=== PATIENT | female | born 1955 | race Caucasian/White ===

== ENCOUNTER → 2018-03-07 | Outpatient (CLI) | payer MEDICARE, OTHER ==
[~2018-03-07] MED LIST: IBUP-232 PO; MECL-62 PO; MEDR4PAK PO; MIRT1TAB PO; PRAV80TA PO
--- NOTE | 2018-03-07 11:00 | RADRPT ---
EXAM DATE/TIME: 03/07/2018 10:46 [facility] COMPARISON: No previous studies available for comparison. INDICATIONS : Right hand pain. No prior trauma. MEDICAL HISTORY : Arthritis. Asthma. SURGICAL HISTORY : None. ENCOUNTER: Initial ACUITY: 3 days PAIN SCORE: 5/10 LOCATION: Right hand. FINDINGS: Three view examination of the right hand demonstrates no soft tissue swelling, dislocation, or fractu re. The carpal bones appear intact. The interphalangeal and metacarpophalangeal joints are intact. Bony mineralization is normal. CONCLUSION: The osseous structures of the hand are intact. Jorge Luis Nunez MD on March 07, 2018 at 10:58 Board Certified Radiologist. This report was verified electronically.
--- NOTE | 2018-03-07 11:00 | RADRPT ---
EXAM DATE/TIME: 03/07/2018 10:41 [facility] COMPARISON: No previous studies available for comparison. INDICATIONS : Cough. History of asthma. MEDICAL HISTORY : Asthma. SURGICAL HISTORY : None. ENCOUNTER: Initial ACUITY: 1 month PAIN SCORE: 0/10 LOCATION: Bilateral chest FINDINGS: PA and lateral views of the chest demonstrate the lungs to be symmetrically aerated without evidence of mass, infiltrate or effusion. The cardiomediastinal contours are unremarkable. Osseous structure s are intact. CONCLUSION: No acute cardiopulmonary disease. Jorge Luis Nunez MD on March 07, 2018 at 10:58 Board Certified Radiologist. This report was verified electronically.
== END ==
LOC: HRAD 10:18
PROVIDERS: ATTEND Family Medicine
DX: M79.641 Pain in right hand (principal); R05 Cough
CPT/HCPCS: 71046; 73130